=== PATIENT | male | born 1965 | race Caucasian/White ===

== ENCOUNTER 2018-09-22 00:18 | Emergency (ER) | payer OTHER, BC ==
[2018-09-22] MEDS: ERYTHROMYCIN 1 GM OPH OINT BOTH EYES (03:23)
[2018-09-22] MEDS: HYDROCODONE/APAP (10/325) TAB PO (03:23)
== END 2018-09-22 03:41 | disposition home or self-care (01) ==
LOC: FTE 03:41
DX: S90.862A Insect bite (nonvenomous), left foot, initial encounter (principal); H10.9 Unspecified conjunctivitis; L03.90 Cellulitis, unspecified; I10 Essential (primary) hypertension; F17.210 Nicotine dependence, cigarettes, uncomplicated; W57.XXXA Bitten or stung by nonvenomous insect and other nonvenomous arthropods, initial encounter; Y92.9 Unspecified place or not applicable
CPT/HCPCS: 73630; 73630-LT; 99283-25